=== PATIENT | male | born 1945 | race Caucasian/White ===

== ENCOUNTER 2017-11-01 06:08 | Day surgery (SDC) | payer MEDICARE, BC, SELFPAY ==
[2017-11-01] VITALS (7 sets, daily range): BP systolic 106–126; BP diastolic 66–78; PULSE 72–85; RESP 12–19; TEMP 36.4–37.1; O2SAT 93–97
[2017-11-01] MEDS: Lactated Ringers 1,000 ML 80 ML IV (07:10)
--- NOTE | 2017-11-01 07:37 | W.PM.DSUDISC ---
Discharge Plan Disposition Patient Disposition: HOME Condition: Stable Discharge Details Reason For Visit: outpt surgery Attending Provider: Bc Britton Primary Care Provider: Alex Santo Lockney Meds and New Rx's Prescriptions: New cephalexin [Keflex] 500 mg capsule 500 mg PO TID 7 Days Qty: 21 RF: 0 No Action gabapentin 600 mg Tablet 600 mg PO DAILY RF: 0 polyethylene glycol 3350 [Miralax] 17 gram Powder In Packet 17 g PO DIRECTED RF: 0 metoprolol succinate 50 mg Tablet Extended Release 24 Hr 50 mg PO .AFTERNOON RF: 0 citalopram 10 mg Tablet 10 mg PO DAILY RF: 0 aspirin [Aspir-81] 81 mg Tablet,Delayed Release (Dr/Ec) 81 mg PO DAILY RF: 0 amitriptyline 50 mg Tablet 50 mg PO DAILY RF: 0 tamsulosin 0.4 mg Capsule 0.4 mg PO DAILY RF: 0 fluorometholone 0.1 % Drops,Suspension 1 drp OPHTHALMIC (EYE) BID RF: 0 indomethacin 50 mg Capsule 50 mg PO BID RF: 0 hydrocortisone 2.5 % Cream 1 applic TOPICAL BID RF: 0 multivitamin Capsule 1 cap PO QAM RF: 0 fluticasone 50 mcg/actuation [place],Suspension 1 spray INTRANASAL DAILY RF: 0 vitamin B complex Capsule 1 cap PO DAILY RF: 0 fenofibrate 54 mg Tablet 54 mg PO DAILY RF: 0 melatonin 10 mg Tablet 10 mg PO HS PRNRF: 0 buprenorphine HCl [Belbuca] 450 mcg Film 450 mcg BUCCAL Q12H RF: 0
[2017-11-01] MEDS: Oxymetazolone 0.05% SPRAY 15 ML BTL (08:19)
--- NOTE | 2017-11-01 12:01 | ROE_ITS ---
DATE OF PROCEDURE: November 01, 2017 PREOPERATIVE DIAGNOSIS: 1. Chronic nasal obstruction. 2. Nasal septal deviation with inferior spur to the left. 3. Severe inferior turbinate hypertrophy bilaterally, worse on the right than the left. 4. Bilateral intranasal valve collapse. POSTOPERATIVE DIAGNOSIS: Same. PROCEDURE: 1. Nasal septal reconstruction. 2. Submucosal resection of inferior turbinates bilaterally. 3. Repair of nasal stenosis with homograft augmentation to bilateral internal nasal valve, endonasal approach with alexis graft. SURGEON: Bc Britton D.O. ANESTHESIA: General and 12 cc's of 1% Lidocaine with 1:100,000 epinephrine. COMPLICATIONS: None. CONDITION: The patient tolerated the procedure well. INDICATIONS FOR PROCEDURE: This is a pleasant 71-year-old male that presents with a long history of difficulty breathing through his nose. He has sought ENT treatment and surgery in the past with a re ported history of inferior turbinate reduction, which has been refractory, he still has significant t rouble breathing through his nose. Evaluation reveals multiple issues including the septal obstructi on with spurring, inferior turbinate hypertrophy and valve collapse. The decision was made forth to proceed with surgery. We will address all three of these components. Risks and complications were d iscussed in detail. Consent was placed in the chart. PROCEDURE: The patient was brought back to the operating suite in stable condition, placed supine on the operating table and intubated in a normal fashion. Twelve cc's of 1% Lidocaine with 1:100,000 e pinephrine was injected into the septal mucosa and inferior turbinates and lateral nasal wall preoper atively. A Emiliano's-type incision was made in the left septal mucosa. A submucosal flap was elevat ed. A cross-over incision through the cartilage was performed with septal knife. Similar a subperic hondrial flap was elevated on the right. The obstructive cartilage was removed; this was saved. The re was a large inferior bony spur that was isolated off of the septal mucosa attachment to the maxill manpreet crest. This was isolated and removed. Posterior bony vomer obstruction on the left was removed with a double-action punch. The submucosal flaps were reapproximated with 4-0 plain gut suture. The re was no significant tear in the mucosa. Next, a 15 blade scalpel was used to incise the anterior face of the inferior turbinates, as well as an intercartilaginous incision to the lateral nasal wall. Blunt pockets were dissected to the pirifo rm aperture bilaterally. The septal cartilage was bisected. The convexity was placed laterally. Th ester lateral incisions were closed with 4-0 chromic gut suture. Next, a 2.0 mm inferior turbinate blade was used to excise the obstructive soft tissue and cartilage of the inferior turbinates bilaterally. All bony aspects were significantly reduced. Outfracture w [facility] elevator of these stab incisions were closed with a 4-0 chromic gut suture. Dual splints w ere placed with Bactroban, sutured to the columella with 2-0 silk suture. Minimal blood loss of 5 cc 's. The patient was stable to PACU. He is already on home narcotics for lower extremity pain so I h ave just recommended augmentation with Motrin. He will contact the office if his pain control is not adequately controlled.
== END 2017-11-01 11:05 | disposition home or self-care (01) ==
PROVIDERS: PCP Family Medicine; Visit Provider Otolaryngology Otolaryngology/Facial Plastic Surgery
PROC: (CPT 30140; principal; 2017-11-01 07:30)
DX: J34.89 Other specified disorders of nose and nasal sinuses (principal); J34.2 Deviated nasal septum; J34.3 Hypertrophy of nasal turbinates; I10 Essential (primary) hypertension
CPT/HCPCS: 30140; 30465; 30520; J0131; J0690; J1100; J1885; J2405; J3010

== ENCOUNTER 2018-11-25 13:10 | Outpatient (CLI) | payer MEDICARE, BC, SELFPAY ==
--- NOTE | 2018-11-25 12:38 | DI.RAD_ITS ---
EXAM: XR SHOULDER LT COMPLETE 2+V INDICATION: LT SHOULDER PAIN, M25.512. COMPARISON: No exams were available for comparison TECHNIQUE: 2D digital imaging was performed. FINDINGS: The bony structures are normally mineralized. There are mild degenerative changes involving the gleno humeral and AC joint. There is no evidence of a fracture or dislocation.
== END 2018-11-25 13:30 ==
PROVIDERS: PCP Family Medicine; Visit Provider Family Medicine
DX: M25.512 Pain in left shoulder (principal); M19.012 Primary osteoarthritis, left shoulder
CPT/HCPCS: 73030

== ENCOUNTER 2018-12-05 12:24 | Outpatient (REF) | payer MEDICARE, BC, SELFPAY ==
[2018-12-05 13:03] LABS: Bilirubin Negative (Negative); Blood Negative (Negative); Clarity Clear (Clear); Glucose Negative (Negative); Ketones Negative (Negative); Leukocyte Esterase Negative (Negative); Nitrite Negative (Negative); Urobilinogen 0.2 EU/dL (Up TO 0.2)
[2018-12-05 13:58] LABS: *AMPHETAMINES SCREEN URINE Negative (Negative); *BARBITURATES SCREEN URINE Negative (Negative); *BENZODIAZEPINES SCREEN URINE Negative (Negative); Cannabinoids THC Negative (Negative); Cocaine Screen,Urine Negative (Negative); METHADONE URINE SCREEN Negative (Negative); OPIATES URINE SCREEN Negative (Negative); Tricyclic Antidepressants POSITIVE (Negative)
== END 2018-12-05 12:44 ==
LOC: NCHCN 12:24
PROVIDERS: PCP Family Medicine; Visit Provider Family Medicine
DX: R35.8 Other polyuria (principal); G89.4 Chronic pain syndrome
CPT/HCPCS: 80307; 81003

== ENCOUNTER 2019-06-06 18:20 | Outpatient (REF) | payer MEDICARE, BC, SELFPAY ==
[2019-06-06 18:43] LABS: CREATININE 0.93 mg/dL (0.70-1.30)
[2019-06-06 19:42] LABS: Vitamin B12 694 pg/mL (193-986)
== END 2019-06-06 18:40 ==
LOC: NCHCN 18:20
PROVIDERS: PCP Family Medicine; Visit Provider Family Medicine
DX: I10 Essential (primary) hypertension (principal); G62.9 Polyneuropathy, unspecified
CPT/HCPCS: 82565; 82607

== ENCOUNTER 2019-07-28 11:36 | Outpatient (CLI) | payer MEDICARE, BC, SELFPAY ==
--- NOTE | 2019-07-28 | DI.RAD_ITS ---
EXAM: XR CHEST 2V PA LATERAL CLINICAL HISTORY: SHORTNESS OF BREATH, R06.02 TECHNIQUE: 2D digital imaging was performed. COMPARISON: CR XR SHOULDER LT COMPLETE 2+V from 11/25/2018 FINDINGS: The lateral view is expiratory. HEART: Normal. PULMONARY VASCULATURE: Normal. LUNGS: Clear. PLEURAL SPACE: No pleural effusion or pneumothorax. BONE:Degenerative changes in the thoracic spine. IMPRESSION: Somewhat limited exam. No acute pulmonary findings. DATA REPOSITORY: RADIATION DOSE DELIVERED:
--- NOTE | 2019-07-28 16:06 | DI.VRAD_ITS ---
PROCEDURE INFORMATION: Exam: XR Chest, 2 Views Exam date and time: 07/28/2019 3:47 PM Age: 73 years old Clinical indication: Other: SOB; Additional info: Very difficult PT. Patient has parkinson's disease. Wet read TECHNIQUE: Imaging protocol: XR of the chest Views: 2 views. COMPARISON: AAA SCREENING 04/15/2017 5:22 PM FINDINGS: Lungs: Unremarkable. No consolidation. Pleural space: Unremarkable. No pleural effusion. No pneumothorax. Heart/Mediastinum: Unremarkable. No cardiomegaly. Bones/joints: Unremarkable. IMPRESSION: No acute findings. Dictated and Authenticated by: Carlito Campbell MD. Ordering:MASOUD Medel MD
== END 2019-07-28 11:56 ==
PROVIDERS: PCP Family Medicine; Visit Provider Nurse Practitioner Family
DX: R06.02 Shortness of breath (principal)
CPT/HCPCS: 71046

== ENCOUNTER 2019-07-28 16:37 | Outpatient (REF) | payer MEDICARE, BC, SELFPAY ==
[2019-07-29 02:40] LABS: COVID-19 RT-PCR UVMMC Result Negative (Negative)
== END 2019-07-28 16:57 ==
LOC: NCHCN 16:37
PROVIDERS: PCP Family Medicine; Visit Provider Nurse Practitioner Family
DX: R06.02 Shortness of breath (principal)
CPT/HCPCS: U0003